=== PATIENT | male | born 1950 | race Caucasian/White ===

== ENCOUNTER 2020-02-04 16:09 | Inpatient (IN) | payer MEDICARE, OTHER ==
[~2020-02-04] VITALS: Ht 165.1 cm; Wt 63.4 kg
[2020-02-04] MEDS ORDERED: MORPHINE SULFATE 4 MG/ML SYR/VIAL IV ONE (16:45)
[2020-02-04] MEDS ORDERED: hydrALAZINE HCL 20 MG/ML VL IV ONE (16:45)
[2020-02-04] MEDS ORDERED: ONDANSETRON HCL 4 MG/2 ML VIAL IV ONE (16:45)
[2020-02-04 16:55] LABS: Eosinophils # (auto) 0 10 ^3/uL (0-0.8); Lymphocytes # (auto) 2.8 10 ^3/uL (0.4-5.4); Neutrophils # (auto) 10.1 10 ^3/uL (1.6-8.6); Nucleated Red Blood Cells % 0.3 %; White Blood Cell 13.5 10^3/uL (4.4-10.8)
[2020-02-04 16:56] LABS: Basophils # (auto) 0 10 ^3/uL (0-0.2); Basophils % (auto) 0.3 % (0.0-2.0); Eosinophils % (auto) 0.1 % (0.0-7.0); Hemoglobin 18.8 g/dL (13.5-17.5); Lymphocytes % (auto) 20.7 % (10.0-50.0); Mean Corpuscular Hemoglobin 29.5 pg (28.0-32.0); Mean Corpuscular Hgb Conc. 29.7 g/dL (32.0-36.0); Mean Corpuscular Volume 99.4 fL (80.0-100.0); Monocytes # (auto) 0.6 10 ^3/uL (0-1.3); Monocytes % (auto) 4.3 % (0.0-12.0); Neutrophils % (auto) 74.6 % (37.0-80.0); Platelet Count (auto) 154 10^3/uL (140-450); Red Blood Cells 6.36 10^6/uL (4.5-5.90)
[2020-02-04 16:58] LABS: Hematocrit 63.3 % (41.0-53.0); Red Cell Distribution Width 20.1 % (11.8-14.3)
[2020-02-04 17:11] LABS: Albumin 3.3 g/dL (3.4-5.0); BUN/Creatinine Ratio 20.5; Calcium 8.4 mg/dL (8.5-10.1); Magnesium 3.1 mg/dL (1.6-2.6)
[2020-02-04 17:16] LABS: Potassium 5.7 mmol/L (3.5-5.1)
[2020-02-04 17:18] LABS: Bilirubin, Total 3.6 mg/dL (0.2-1.0); Total Protein 7.6 g/dL (6.4-8.2)
[2020-02-04 18:00] VITALS: BP 106/74
[2020-02-04] MEDS ORDERED: FUROSEMIDE 40 MG/4 ML VIAL IV ONE (18:15)
[2020-02-04] MEDS ORDERED: LABETALOL HCL 5 MG/ML 4ML SYRINGE IV ONE (18:15)
[2020-02-04] MEDS ORDERED: CALCIUM GLUC 4.65meq/50ml D5AE 50 ML IV ONE (18:15)
[2020-02-04] MEDS ORDERED: CALCIUM CHL 100MG/ML 1,000 MG in D5W 5% 100 ML IV ONE (18:15)
[2020-02-04] MEDS ORDERED: SODIUM CHLORIDE 0.9% 500 ML IV ONE (18:15)
[2020-02-04] MEDS ORDERED: AZITHROMYCIN 500MG/ 250ML 250 ML IV ONE (18:15)
[2020-02-04] MEDS ORDERED: cefTRIAXone 1GM/50ML D5W 50 ML IV ONE (18:15)
[2020-02-04 19:16] LABS: INR 1.71 (0.9-1.15); Partial Thromboplastin Time 30.8 sec (23.64-32.05)
[2020-02-04] MEDS ORDERED: NITROGLYCERIN 0.4 MG SL TAB SL PRN (19:30)
[2020-02-04] MEDS ORDERED: AMIODARONE HCL 150 MG in D5W 5% 100 ML IV ONE (19:30)
[2020-02-04] MEDS ORDERED: MORPHINE SULF INJ 2 MG/ML SYRINGE 1ML IV PRN (19:30)
[2020-02-04] MEDS ORDERED: AMIODARONE 450mg/250ml AE 250 ML IV SCH (19:38)
[2020-02-04 19:43] VITALS: BP 128/78
[2020-02-04] MEDS ORDERED: LACTULOSE 20Gm/30ML SOLN PO PRN (20:30)
[2020-02-04] MEDS ORDERED: ALBUTEROL SULF 2.5 MG/0.5ML(0.5%) NEB SOLN NEB PRN (20:30)
[2020-02-04] MEDS ORDERED: MIDAZOLAM DRIP 50 mg/50mL 50 ML IV ONE (20:31)
[2020-02-04] MEDS ORDERED: InsuLIN REG 1unit/0.01ml Soln (100units/ml) IV ONE (20:45)
[2020-02-04] MEDS ORDERED: SODIUM ZIRCONIUM CYCL 10 GM PAK PO ONE (20:45)
[2020-02-04] MEDS ORDERED: SODIUM BICARBONATE 8.4% INJ 50ML SYRINGE IV ONE (20:45)
[2020-02-04] MEDS ORDERED: DEXTROSE (50%) 50ML SYRG IV ONE (20:45)
[2020-02-04] MEDS ORDERED: CLOPIDOGREL BISULFATE 75 MG TAB PO ONE (21:00)
[2020-02-04 22:00] VITALS: BP 121/72
[2020-02-04] MEDS ORDERED: ATORVASTATIN 20 MG TAB PO SCH (22:00)
[2020-02-04] MEDS: MIDAZOLAM DRIP 50 mg/50mL 50 ML IV SCH (23:04)
[2020-02-04] MEDS: methylPREDNISolone SOD SUCC 40 MG/ML VL IV SCH (23:08)
[2020-02-04] MEDS: FUROSEMIDE 40 MG/4 ML VIAL IV SCH (23:09)
[2020-02-04] MEDS: SODIUM CHLOR 0.9% PF (SALINE LOCK) 10ML VIAL/SYR IV SCH (23:10)
[2020-02-04] MEDS: ENOXAPARIN SOD 80 MG/0.8ML SYRINGE SC SCH (23:11)
[2020-02-04 23:27] LABS: BUN/Creatinine Ratio 27.5; Calcium 8.9 mg/dL (8.5-10.1)
[2020-02-04 23:33] LABS: Potassium 4.9 mmol/L (3.5-5.1)
[2020-02-05] VITALS (13 sets, daily range): BP systolic 88–129; BP diastolic 63–100
[2020-02-05] MEDS ORDERED: AMIODARONE 450mg/250ml AE 250 ML IV SCH ×3 (01:38→17:54)
[2020-02-05] MEDS: SODIUM CHLOR 0.9% PF (SALINE LOCK) 10ML VIAL/SYR IV SCH ×3 (06:00→22:00)
[2020-02-05 07:12] LABS: Hematocrit 44.5 % (41.0-53.0); Hemoglobin 14.3 g/dL (13.5-17.5); Mean Corpuscular Hgb Conc. 32.2 g/dL (32.0-36.0); Mean Corpuscular Volume 93.2 fL (80.0-100.0); Platelet Count (auto) 120 10^3/uL (140-450); Red Blood Cells 4.78 10^6/uL (4.5-5.90); Red Cell Distribution Width 18.7 % (11.8-14.3)
[2020-02-05 07:27] LABS: Basophils % (manual) 0 (0.0-2.0); Blast Cells 0; Eosinophils % (manual) 0 (0-7); Metamyelocytes % 0; Myelocytes % 0; Promyelocytes % 0; Reactive Lymphocytes 0
[2020-02-05 07:29] LABS: Potassium 4.6 mmol/L (3.5-5.1)
[2020-02-05 07:36] LABS: Band Neutrophils % (manual) 2; Lymphocytes % (manual) 8 (10.0-50.0); Monocytes % (manual) 3 (0-12)
[2020-02-05 07:53] LABS: Albumin 2.9 g/dL (3.4-5.0); BUN/Creatinine Ratio 29.7; Bilirubin, Total 2.8 mg/dL (0.2-1.0); Calcium 9.3 mg/dL (8.5-10.1); Total Protein 5.8 g/dL (6.4-8.2)
[2020-02-05] MEDS ORDERED: fentaNYL Drip 2500mCg/250mlNS 250 ML IV ONE (08:53)
[2020-02-05] MEDS ORDERED: NOREPINEPHRINE 8 MG/250ML KIT 250 ML IV ONE (08:53)
[2020-02-05] MEDS: fentaNYL Drip 2500mCg/250mlNS 250 ML IV SCH (09:05)
[2020-02-05] MEDS: NOREPINEPHRINE 8 MG/250ML KIT 250 ML IV SCH (09:06)
[2020-02-05] MEDS: MIDAZOLAM DRIP 50 mg/50mL 50 ML IV SCH ×2 (09:07→12:06)
[2020-02-05] MEDS: levoFLOXacin 500MG 100 ML IV SCH (09:34)
[2020-02-05] MEDS: FUROSEMIDE 40 MG/4 ML VIAL IV SCH ×2 (09:34→22:00)
[2020-02-05] MEDS: ASPirin 81 mg TAB PO SCH (09:35)
[2020-02-05] MEDS: ENOXAPARIN SOD 80 MG/0.8ML SYRINGE SC SCH ×2 (09:35→22:00)
[2020-02-05] MEDS: CLOPIDOGREL BISULFATE 75 MG TAB PO SCH (09:35)
[2020-02-05] MEDS: methylPREDNISolone SOD SUCC 40 MG/ML VL IV SCH ×2 (09:35→22:00)
[2020-02-05] MEDS ORDERED: ASPirin 81 mg TAB PO SCH (10:00)
[2020-02-05] MEDS ORDERED: dilTIAZem 25 MG/5 ML VIAL IV ONE (11:30)
[2020-02-05] MEDS ORDERED: EPINEPHrine HCL 1 MG/10 ML SYRG IV ONE (12:35)
[2020-02-05] MEDS ORDERED: CALCIUM CHLOR(10%) 100MG/ML 10ML SYRINGE IV ONE (12:35)
[2020-02-05] MEDS ORDERED: SODIUM BICARBONATE 8.4% INJ 50ML SYRINGE IV ONE (12:35)
[2020-02-05] MEDS ORDERED: AMIODARONE HCL 150 MG in D5W 5% 100 ML IV ONE (12:45)
[2020-02-05] MEDS ORDERED: DIGOXIN (250MCG/ML) 2 ML AMPULE IV ONE ×2 (12:45→13:00)
[2020-02-06] VITALS (57 sets, daily range): BP systolic 83–134; BP diastolic 54–97
[2020-02-06] MEDS: NOREPINEPHRINE 8 MG/250ML KIT 250 ML IV SCH (01:15)
[2020-02-06] MEDS ORDERED: ACETAMINOPHEN 650 mg PER 20 mL UD PO PRN (03:00)
[2020-02-06] MEDS: MIDAZOLAM DRIP 50 mg/50mL 50 ML IV SCH (03:25)
[2020-02-06] MEDS ORDERED: SODIUM CHLORIDE 0.9% 1,000 ML IV SCH (04:00)
[2020-02-06 05:33] LABS: Basophils # (auto) 0 10 ^3/uL (0-0.2); Basophils % (auto) 0.3 % (0.0-2.0); Eosinophils # (auto) 0 10 ^3/uL (0-0.8); Hematocrit 43.2 % (41.0-53.0); Hemoglobin 13.9 g/dL (13.5-17.5); Lymphocytes # (auto) 0.7 10 ^3/uL (0.4-5.4); Lymphocytes % (auto) 4.5 % (10.0-50.0); Mean Corpuscular Hemoglobin 29.6 pg (28.0-32.0); Mean Corpuscular Hgb Conc. 32.1 g/dL (32.0-36.0); Mean Corpuscular Volume 92.2 fL (80.0-100.0); Monocytes # (auto) 0.4 10 ^3/uL (0-1.3); Monocytes % (auto) 2.8 % (0.0-12.0); Neutrophils # (auto) 14.6 10 ^3/uL (1.6-8.6); Neutrophils % (auto) 92.4 % (37.0-80.0); Nucleated Red Blood Cells % 0.6 %; Platelet Count (auto) 101 10^3/uL (140-450); Red Blood Cells 4.68 10^6/uL (4.5-5.90); White Blood Cell 15.8 10^3/uL (4.4-10.8)
[2020-02-06] MEDS: SODIUM CHLOR 0.9% PF (SALINE LOCK) 10ML VIAL/SYR IV SCH ×3 (05:50→21:43)
[2020-02-06 05:51] LABS: INR 1.42 (0.9-1.15); Partial Thromboplastin Time 43.7 sec (23.64-32.05)
[2020-02-06 05:59] LABS: Calcium 8.2 mg/dL (8.5-10.1); Magnesium 2.4 mg/dL (1.6-2.6); Potassium 4.6 mmol/L (3.5-5.1)
[2020-02-06 06:08] LABS: Albumin 2.7 g/dL (3.4-5.0); BUN/Creatinine Ratio 30.2; Total Protein 5.1 g/dL (6.4-8.2)
--- NOTE | 2020-02-06 06:25 | NUR ---
Respiratory note: RECEIVED PATIENT ON V14 ESPRIT VENT ORALLY INTUBATED WITH A 7.5 ETT SECURED VIA JESSI AT THE 23CM MARKING AT THE LIP, AND MECHANICALLY VENTILATED WITH THE CHARTED SETTINGS. SPO2 99%, LUNG SOUNDS COARSE/RHONCHI T/O, MODERATE AMOUNT OF THICK RED/BLOOD TINGED SECRETIONS WHEN SUCTIONED. SKIN IS WARM/DRY TO THE TOUCH AND IS INTACT NEAR JESSI SITE. THERE IS AN OGT IN PLACE AND SECURED TO THE ETT, A TRIPLE LUMEN CENTRAL LINE IS PLACED IN THE RIGHT IJ, PITTING EDEMA NOTED IN BILATERAL UPPER AND LOWER EXTREMITIES. NO NEW AM CXR TO ASSESS. PATIENT IS UNRESPONSIVE TO VERBAL STIMULI, BUT DOES SHOW RESPONSE TO TACTILE STIMULI, AND IS SEDATED ON VERSED AND FENTANYL DRIPS. HE IS RESTING COMFORTABLY AND TOLERATING VENT WELL, NO CHANGES MADE. VENT PLUGGED INTO RED OUTLET AND ALL ALARMS ARE SET AND AUDIBLE. WILL CONTINUE TO ASSESS PATIENT WELL VENTILATOR FUNCTION. PRN MED-NEB NOT INDICATED AT THIS TIME.
--- NOTE | 2020-02-06 06:38 | NUR ---
Respiratory note: FIO2 INCREASED TO 40% AT THIS TIME FOR LOW PO2 ON ABG. RN HERB MADE AWARE OF CHANGE.
[2020-02-06] MEDS: levoFLOXacin 500MG 100 ML IV SCH (09:44)
[2020-02-06] MEDS: FUROSEMIDE 40 MG/4 ML VIAL IV SCH (09:44)
[2020-02-06] MEDS: methylPREDNISolone SOD SUCC 40 MG/ML VL IV SCH ×2 (09:44→22:01)
[2020-02-06] MEDS: ENOXAPARIN SOD 80 MG/0.8ML SYRINGE SC SCH ×2 (09:44→22:02)
[2020-02-06] MEDS: ASPirin 81 mg TAB PO SCH (09:44)
[2020-02-06] MEDS: CLOPIDOGREL BISULFATE 75 MG TAB PO SCH (09:44)
--- NOTE | 2020-02-06 09:56 | NUR ---
Respiratory note: FIO2 DECREASED TO 35% AT THIS TIME, ERICK REYES MADE AWARE OF CHANGE.
[2020-02-06] MEDS: SODIUM CHLORIDE 0.9% 1,000 ML IV SCH (12:15)
--- NOTE | 2020-02-06 12:30 | NUR ---
Admit to ICU from ER on [facility] ANNA PAYNE admitted to ICU via gurney on telemetry monitor, intubated and being bagged by Respiratory Therapist. Patient transferred to bed, connected to mechanical ventilator by therapist, RUTH at bedside. Patient connected to ICU monitoring, weighed by bed scale, oriented to REE CERVANTES RN primary RN, unit, ventilator and sedation.
--- NOTE | 2020-02-06 12:35 | NUR ---
RT Transport Note: Patient transported to ICU with ERICK BAUMAN. Patient on time lock expert with alarms set and audible, ambu-bag/mask connected to 02 tank. Patient placed velasquez on vent with all previously ordered settings. transport completed without incident.
[2020-02-06] MEDS: fentaNYL Drip 2500mCg/250mlNS 250 ML IV SCH (13:24)
[2020-02-06 14:03] LABS: Barbiturate Scree,Urine NEGATIVE (NEGATIVE); Protein, Urine 34.6 mg/dL (0.0-11.9); Sodium Urine 36 mmol/L (40-220)
[2020-02-06 14:11] LABS: Amphetamine Screen, Urine NEGATIVE (NEGATIVE); Benzodiazephine Screen, Urine POSITIVE (NEGATIVE); Cannabinoid Screen, Urine POSITIVE (NEGATIVE); Cocaine Screen, Urine NEGATIVE (NEGATIVE); Creatinine, Urine 76 mg/dL (30.0-125.0); Opiate Scree,Urine NEGATIVE (NEGATIVE); Phencyclidine Screen, Urine NEGATIVE (NEGATIVE)
[2020-02-06 14:13] LABS: Alcohol, Urine < 3.0 mg/dL (0-10)
[2020-02-06 14:44] LABS: Urine Amorphous Crystal FEW /hpf (None Seen); Urine Bacteria FEW /hpf (None Seen); Urine Blood 2+ /uL (Negative); Urine Hyaline Cast MANY /lpf (0 - 2); Urine Mucus FEW (None Seen); Urine Specific Gravity 1.015 (1.001-1.035); Urine WBC 9 /hpf (0 - 3); Urine WBC Clumps PRESENT /hpf (None Seen)
--- NOTE | 2020-02-06 15:10 | NUR ---
THIS RN IS UNABLE TO COMPLETE Admission IN IT'S ENTIRETY DUE TO PATIENT BEING INTUBATED AND SEDATED. SPOKE TO PATIENTS SISTER KOMAL WHO IS PATIENTS POA. COPY OF PAPER WORK IS IN PATIENTS CHART. SISTER IS UNABLE TO ANSWER SOME QUESTIONS ABOUT PATIENTS HEALTH.
[2020-02-06] MEDS: BUMETANIDE INJECTION 12.5 MG in GIVE UN-DILUTED 0 ML IV SCH (15:41)
[2020-02-06] MEDS ORDERED: DOBUTamine 1000MCG/ML 250 ML IV SCH (17:24)
[2020-02-06] MEDS ORDERED: chlordiazePOXIDE HCL 25 MG CAP PO PRN (17:30)
--- NOTE | 2020-02-06 19:30 | NUR ---
OPEN NOTES ASSUMED CARE OF PATIENT. PATIENT SEDATED WITH IV VERSED AND FENTANYL. BREATHING COMFORTABLY WITH THE VENTILATOR. HR 54-60/MIN, BP STABLE. RIGHT IJ TLC DRESSING WITH SOME BLOOD NOTED BUT NOT ACTIVELY BLEEDING. TEMP 97.2 F RECTALLY - COVERED WITH WARM BLANKETS ALL LIMBS PUFFY, UPPER LIMBS NOTED WITH ECCHYMOSIS FULL ASSESSMENT DONE -REFER INTERVENTIONS WILL CONTINUE TO MONITOR
[2020-02-06] MEDS: DexMEDEtomidine 400 MCG in D5W 5% 96 ML IV SCH (19:37)
[2020-02-06] MEDS: DOPamine 1600MCG/ML D5W 250 ML IV SCH (19:39)
--- NOTE | 2020-02-06 20:47 | NUR ---
BP LOW SBP 83-88 MMHG, MAP 64 MMHG X 3 READINGS IV LEVOPHED RE-STARTED AT 2MCG/MIN
--- NOTE | 2020-02-06 21:15 | NUR ---
PATIENT STARTED SHAKING WHEN SEDATION VACATION DONE Addendum: 02/06/20 at 2115 by Sofi Roque RN Amended: Links added.
--- NOTE | 2020-02-06 23:15 | NUR ---
Levophed off SBP 110-120 mmHg
[2020-02-07] VITALS (101 sets, daily range): BP systolic 87–117; BP diastolic 56–79
[2020-02-07] MEDS: BUMETANIDE INJECTION 12.5 MG in GIVE UN-DILUTED 0 ML IV SCH ×2 (00:50→23:00)
[2020-02-07] MEDS: SODIUM CHLORIDE 0.9% 1,000 ML IV SCH (03:07)
--- NOTE | 2020-02-07 03:30 | NUR ---
HYGIENE PATIENT CLEANED WITH CHG WIPES. PARTIAL LINEN CHANGE DONE REPOSITIONED ORAL CARE DONE
[2020-02-07 04:25] LABS: Basophils # (auto) 0 10 ^3/uL (0-0.2); Basophils % (auto) 0.2 % (0.0-2.0); Eosinophils # (auto) 0 10 ^3/uL (0-0.8); Hematocrit 40.1 % (41.0-53.0); Hemoglobin 12.7 g/dL (13.5-17.5); Lymphocytes # (auto) 0.5 10 ^3/uL (0.4-5.4); Lymphocytes % (auto) 4.3 % (10.0-50.0); Mean Corpuscular Hemoglobin 29.2 pg (28.0-32.0); Mean Corpuscular Hgb Conc. 31.7 g/dL (32.0-36.0); Monocytes # (auto) 0.4 10 ^3/uL (0-1.3); Monocytes % (auto) 3.2 % (0.0-12.0); Neutrophils # (auto) 10.9 10 ^3/uL (1.6-8.6); Neutrophils % (auto) 92.3 % (37.0-80.0); Platelet Count (auto) 84 10^3/uL (140-450); Red Blood Cells 4.36 10^6/uL (4.5-5.90); Red Cell Distribution Width 18.7 % (11.8-14.3); White Blood Cell 11.8 10^3/uL (4.4-10.8)
[2020-02-07 04:48] LABS: Potassium 4.1 mmol/L (3.5-5.1)
[2020-02-07 04:54] LABS: Albumin 2.2 g/dL (3.4-5.0); BUN/Creatinine Ratio 34.5; Calcium 7.7 mg/dL (8.5-10.1); Magnesium 2.5 mg/dL (1.6-2.6)
[2020-02-07 05:09] LABS: Bilirubin, Total 2.4 mg/dL (0.2-1.0); Total Protein 4.8 g/dL (6.4-8.2)
[2020-02-07] MEDS: SODIUM CHLOR 0.9% PF (SALINE LOCK) 10ML VIAL/SYR IV SCH ×3 (06:09→22:00)
--- NOTE | 2020-02-07 07:32 | NUR ---
REPORT REPORT GIVEN TO ERICK CARDONA
[2020-02-07] MEDS: NOREPINEPHRINE 8 MG/250ML KIT 250 ML IV SCH (08:50)
[2020-02-07] MEDS: fentaNYL Drip 2500mCg/250mlNS 250 ML IV SCH ×2 (08:50→14:21)
[2020-02-07] MEDS: ENOXAPARIN SOD 80 MG/0.8ML SYRINGE SC SCH ×2 (10:07→22:00)
[2020-02-07] MEDS: CLOPIDOGREL BISULFATE 75 MG TAB PO SCH (10:07)
[2020-02-07] MEDS: levoFLOXacin 500MG 100 ML IV SCH (10:07)
[2020-02-07] MEDS: ASPirin 81 mg TAB PO SCH (10:07)
[2020-02-07] MEDS: methylPREDNISolone SOD SUCC 40 MG/ML VL IV SCH ×2 (10:08→22:00)
--- NOTE | 2020-02-07 10:12 | NUR ---
assessment Patient is a 69 year old male who is on a vent. Per patients sister Valeria and GUILLERMINA prior to admission patient lived home alone and cared for himself as far as cooking and dressing himself. Valeria drives him to the doctor, buys his food, and cleans his house for him. Patients PCP is Dr Amos. Patient has a fww, cane, and oxygen at home. Per Valeria patients friend called 911 due to patient having shortness of breath. Per Valeria patient may benefit from home health or SNF on discharge. I informed Valeria I will continue to monitor and follow up as appropriate. I informed Valeria patients post discharge needs to be determined after extubation and prior to discharge. Valeria verbalized understanding. Addendum: 02/07/20 at 1020 by Yasmine WEINER Amended: Links added.
--- NOTE | 2020-02-07 10:37 | NUR ---
DR. RODRIGUEZ AT BEDSIDE
--- NOTE | 2020-02-07 10:38 | NUR ---
PATIENT TAKEN TO CT VIA ACLS GUIDELINES
--- NOTE | 2020-02-07 10:40 | NUR ---
RT Transport Note: Patient transported to CT with ERICK SIFUENTES. Patient transported to and from procedure on ventilator with previous ordered settings. Patient on nurse monitoring with alarms set and audible, ambu-bag/mask connected to 02 tank. Patient returned to room with no adverse reaction noted. Transport completed without incident.
--- NOTE | 2020-02-07 11:05 | NUR ---
PATIENT BACK FROM CT PLACED ON ALL APPROPRIATE MONITORS
--- NOTE | 2020-02-07 11:10 | NUR ---
COMPLETE LINEN CHANGE PERFORMED. PATIENT TOLERATED WELL
--- NOTE | 2020-02-07 11:21 | NUR ---
DR. JORGE AT BEDSIDE
--- NOTE | 2020-02-07 11:55 | NUR ---
WOUND CARE NOTE: PATIENT ADDED TO SKIN INTEGRITY MONITORING AT THIS TIME, D/T INTUBATION STATUS. PATIENT RECENTLTY ADMITTED TO [facility] WITH DIAGNOSIS OF ACUTE PA, HEART FAILURE, TACHYCARDIA, S/P CPR. PATIENT IS INTUBATED, SEDATED. CURRENT NARA SCORE IS 11. PATIENT RECEIVED A CONTACT BURN TO THE CHEST FOLLOWING CPR. SKIN IS DARK RED, SKIN INTACT. LEFT OPEN TO AIR. PATIENT ALSO HAS MULTIPLE SMALL SCARS AND SCABBED ABRASIONS TO THE RIGHT LOWER LEG. LEFT OPEN TO AIR. WOUND PHOTOS WERE TAKEN UPON ADMIT BY BEDSIDE NURSE FOR REFERENCE. SKIN/WOUND CARE PLAN IMPLEMENTED. RECOMMEND: FREQUENT TURN SCHEDULE, Q 2 HOURS PRN CONDITION PERMITS, WITH PRESSURE REDISTRIBUTION USING PILLOWS/WEDGES, BID/PRN APPLICATION MOISTURE BARRIER CREAM, OPTIFOAM GENTLE SACRAL DRESSING DIETARY CONSULT FOR LOW NARA, SKIN/WOUND CARE PLAN, CONTINUED MONITORING BY WOUND CARE TEAM. Addendum: 02/07/20 at 1520 by Elise Liang RN Amended: Links added.
[2020-02-07] MEDS: MIDAZOLAM DRIP 50 mg/50mL 50 ML IV SCH (13:54)
--- NOTE | 2020-02-07 14:13 | NUR ---
[facility] SPUTUM DR. JORGE PAGED TO NOTIFY OF MRSA FOUND IN SPUTUM. AWAITING CALLBACK
--- NOTE | 2020-02-07 14:22 | NUR ---
DR. JORGE CALLBACK ORDERS RECEIVED
[2020-02-07] MEDS ORDERED: VANCOMYCIN 1GM/250ML 250 ML IV ONE ×2 (14:25→14:30)
[2020-02-07] MEDS ORDERED: VANCOMYCIN PER PHARMACY 0 MG IV SCH (14:30)
[2020-02-07] MEDS: DOPamine 1600MCG/ML D5W 250 ML IV SCH (14:45)
--- NOTE | 2020-02-07 15:31 | NUR ---
Nutrition Assessment Notes Please refer to link for full assessment notes. Est Energy needs: 5426-8962 kcals (30-35 kcal/kgBW) d/t pt with Stg 3 CKD Est Protein needs: 44-65 gms/day (0.6-0.75 gm/kgBW) d/t pt with Stg 3 CKD Will continue to monitor and reassess prn. Addendum: 02/07/20 at [address] Amended: Links added.
[2020-02-07] MEDS: DexMEDEtomidine 400 MCG in D5W 5% 96 ML IV SCH (17:24)
--- NOTE | 2020-02-07 18:19 | NUR ---
Respiratory note: RECEIVED PT ON VENT V4, VENT CONNECTED TO RED OUTLET AND O2 SOURCE. ALARMS ARE SET AND AUDIBLE, AMBU BAG AND MASK AT BEDSIDE. BS ARE COURSE SXD VIA ETT FOR MODERATE THICK BROWN SECRETIONS. CURRENT TEMP READS 98.8F. WITH ANY STIMULATION PT BEGINS TO HAVE TREMORS. WILL CONTINUE TO MONITOR.
[2020-02-07] MEDS ORDERED: POTA10TA51 PO (18:22)
[2020-02-07] MEDS ORDERED: AMLO5TAB15 PO (18:22)
[2020-02-07] MEDS ORDERED: PRED20TA2 PO (18:22)
[2020-02-07] MEDS ORDERED: FURO1TAB31 PO (18:22)
[2020-02-07] MEDS ORDERED: APIX5TAB PO (18:22)
[2020-02-07] MEDS ORDERED: METH2.5T PO (18:22)
[2020-02-07] MEDS ORDERED: FOLI1TAB6 PO (18:22)
[2020-02-07] MEDS ORDERED: CARV3.1240 PO (18:22)
[2020-02-07] MEDS ORDERED: ATOR20TA PO (18:22)
--- NOTE | 2020-02-07 19:49 | NUR ---
ADMITTED ON 02/04/2020 WITH DYSPNEA, HYPOTENSION, SVT AND CODE BLUE. DNR TODAY. ETT TO VENTILATOR. AC OF 14. SEDATION: VERSED 5 MG. ON BUMEX DRIP 0.5 IV DRIP. ECHOCARDIOGRAM: LOW EF. NUTRITION: NPO. OGT CLAMPED. SKIN: CONTRACT BURN FROM CPR PADS. DR RAHMAN CALLED IN TODAY. STAT CT OF HEAD ORDERED. EEG PENDING. NEGATIVE INFLUENZA, NEGATIVE STREP, NEGATIVE COVID.
--- NOTE | 2020-02-07 20:05 | NUR ---
Respiratory note: ROUTINE VENT CHECK. SANDRA WATER CHANGED, PLACED, SECURED AND MARCUS HEATER TUBING IS UNCLAMPED. NO OTHER CHANGES MADE WILL CONTINUE TO MONITOR. CURRENT BODY TEMP READS 99.0F.
--- NOTE | 2020-02-07 22:00 | NUR ---
REPOSITIONED TO BACK. ORAL CARE. SMALL AMOUNT OF BLOOD STREAKS MIXED WITH CLEAR SECRETIONS. RUST SUCTIONED FROM THE ETT. ABDOMEN SOFT. NO NGT RESIDUAL. URINE OUTPUT ADEQUATE. CONTINUES ON BUMEX AND VERSED DRIP. GRIMACES. LIGHT COUGH AND GAG.
--- NOTE | 2020-02-07 23:00 | NUR ---
PLACED ON PORTABLE MONITOR WITH DEFIB CAPABILITIES. RT HERE TO BAG PATIENT. LEAVING BEDSIDE TO GO TO CT SCAN. PROCEDURE: CT SCAN OF THE HEAD. NSR WITHOUT ECTOPY.
--- NOTE | 2020-02-07 23:25 | NUR ---
RETURNED FROM CT SCAN. PLACED BACK ON BEDSIDE MONITOR AND RT RETURNED THE PATIENT TO THE VENTILATOR. VSS. NEW BUMEX DRIP HUNG. PATIENT OPENS EYES, GRIMACES. DOES NOT FOLLOW COMMANDS.
[2020-02-08] VITALS (91 sets, daily range): BP systolic 88–132; BP diastolic 58–88
--- NOTE | 2020-02-08 | NUR ---
REPOSITIONED. SUCTIONED THE ORAL CAVITY FOR A SMALL AMOUNT OF RUST SECRETIONS. NO RESIDUAL FROM THE NGT. ORAL CARE DONE. HEELS OFF BED. SISTER CALLED AND SPOKE OF TERMINAL WEAN.
--- NOTE | 2020-02-08 02:00 | NUR ---
RT SUCTIONED THE ETT JUST BEFORE ME. ORAL CARE DONE. RIJ TLC DRESSING CHANGED. SITE HAD BLOOD AT THE SITE. AREA CLEANED WITH BETADINE AND ALCOHOL. BIOPATCH APPLIED AND CLEAR DRESSING TO COVER. SINUS BRADYCARDIA WITH A BRIEF SELF LIMITING RUN OF SVT. DOES HAVE SHORT RUNS OF INCREASED HEART RATE THAT IS SINUS, BUT IT IS SELF LIMITING. LUNGS CLEAR. PULSES WEAK. ALL EXTREMITIES ARE CONSISTENTLY WARM. SCDS ON. GOOD URINE OUT PUT. THE BRIZUELA HAS SEDIMENT LINING THE TUBING, BUT WHAT IS IN THE CONTAINER IS CLEAR.
[2020-02-08] MEDS: MIDAZOLAM DRIP 50 mg/50mL 50 ML IV SCH ×2 (03:00→13:38)
--- NOTE | 2020-02-08 04:00 | NUR ---
AM LABS DRAWN
[2020-02-08 05:29] LABS: Albumin 2.3 g/dL (3.4-5.0); Potassium 3.4 mmol/L (3.5-5.1)
--- NOTE | 2020-02-08 05:30 | NUR ---
SPOKE WITH SISTER, ONCE AGAIN SHE STATED THAT SHE WILL CALL THE DOCTOR AND MAKE A DECISION CONCERNING TERMINAL WEAN.
[2020-02-08 05:38] LABS: BUN/Creatinine Ratio 39.9; Bilirubin, Total 2.5 mg/dL (0.2-1.0); Total Protein 5.2 g/dL (6.4-8.2)
[2020-02-08] MEDS: SODIUM CHLOR 0.9% PF (SALINE LOCK) 10ML VIAL/SYR IV SCH ×3 (06:00→22:00)
--- NOTE | 2020-02-08 06:00 | NUR ---
SINUS NAEL 57, NO ECTOPY. BONILLA SECRETIONS FROM ETT. ORAL CARE DONE. ADEQUATE URINE OUTPUT. SISTER CALLED. SHE IS DISCUSSING TERMINAL WEAN. HER PLAN IS TO CONTACT THE DOCTOR TODAY AND MAKE A DECISION.
--- NOTE | 2020-02-08 07:55 | NUR ---
SHAKING/ DESATURATION/ CEREBRAL EDEMA PT'S SPO2 WAS GOING DOWN TO THE 60'S I WENT IN ROOM TO ASSESS PT. PT WAS SHAKING SUBTLE ALL AVER HIS BODY, PUPILS FULLY DILATED WITH A SLUGGISH REACTION TO LIGHT, FEET WERE POSTURING INWARD. PT HAS THE SHAKING FOR APPROXIMATELY FIVE MINUTES FROM BEGINNING TO END. I NOTIFIED DR. RAHMAN PT'S NEUROLOGIST WHOM HAPPEN TO ASSESS PT ABOUT 5 MIN. BEFORE EVENT HAPPENED. MD WAS REVIEWING PT'S CAT'S SCAN AND ITS CORRELATING FINDINGS WITH CEREBRAL EDEMA. PT'S SISTER HAD MADE PT. DNR AND IS PLANNING ON DOING A TERMINAL WEAN FROM VENTILATOR TODAY. I NOTIFIED DR. RAHMAN OF PT'S SISTER'S PLAN. NO NEW ORDERS RECEIVED.
--- NOTE | 2020-02-08 08:00 | NUR ---
AM ASSESSMENT DONE. PT REMAINS INTUBATED, SEDATED ON VERSED AT 5 MG/HR PT HAVING SHAKES. PT S/P CPR. PT DX WITH SEPSIS AND NSTEMI, PT HAS ANOXIC ENCEPHALOPATHY. PT CURRENTLY DNR STATUS PT'S SISTER KOMAL IS CONTEMPLATING A TERMINAL WEAN FROM VENTILATOR D/T PT'S EXTENSIVE MEDICAL HISTORY AND PT'S DPOA. PT DID NOT WANTED TO PROLONG HIS LIFE PER REPORT RECEIVED BY FOOTWEAR MACHINERY INSTRUCTOR RN. ORAL CARE RENDERED PT VERY FRAIL TO ANY ACTIVITY, PT SHAKES AND SPO2 DROPS WITH ANY STIMULATION. THE PLAN FOR THE DAY WILL BE TO KEEP STIMULATION TO A MINIMUM.
[2020-02-08] MEDS: NOREPINEPHRINE 8 MG/250ML KIT 250 ML IV SCH (08:50)
[2020-02-08] MEDS: fentaNYL Drip 2500mCg/250mlNS 250 ML IV SCH (08:50)
--- NOTE | 2020-02-08 09:05 | NUR ---
PT HAD ANOTHER EPISODE OF CONSTANT SHAKING, THIS TIME. VERSED HAD TO BE INCREASED TO 8 MG/HR. WITNESSES 5 MIN OF CONTINUES SHAKING AND POSTURING. SPO2 DROPPED TO 48%. PT FIO2 INCREASED TO 100% DURING EVENT. PT WAS MEDICATED WITH 2 MG OF VERSED IVP IMMEDIATELY TO STOP SEIZURE.
[2020-02-08] MEDS: DOPamine 1600MCG/ML D5W 250 ML IV SCH (09:51)
--- NOTE | 2020-02-08 10:50 | NUR ---
DR. MEDRANO ROUNDING ON PT. PT'S SISTER KOMAL ON THE PHONE WANTING TO DO A TERMINAL WEAN ON PT TOMORROW. PT ALREADY DNR.
[2020-02-08] MEDS ORDERED: VANCOMYCIN 1GM/250ML 250 ML IV ONE (12:15)
[2020-02-08] MEDS: ENOXAPARIN SOD 80 MG/0.8ML SYRINGE SC SCH ×2 (12:46→22:00)
[2020-02-08] MEDS: CLOPIDOGREL BISULFATE 75 MG TAB PO SCH (12:46)
[2020-02-08] MEDS: methylPREDNISolone SOD SUCC 40 MG/ML VL IV SCH ×2 (12:46→22:00)
[2020-02-08] MEDS: levoFLOXacin 500MG 100 ML IV SCH (12:47)
[2020-02-08] MEDS: ASPirin 81 mg TAB PO SCH (13:35)
--- NOTE | 2020-02-08 13:43 | NUR ---
DR. RICHEY ROUNDING ON PT I UPDATED MD ON PT'S SISTER'S DECISION ON TERMINAL WEAN TOMORROW AT 11 AM. STATES PT " MIGHT SURVIVE" I TOLD HIM THAT PT'S SISTER IS WELL AWARE OF THAT, THAT THE OUTCOME IS UNPREDICTABLE.
--- NOTE | 2020-02-08 13:46 | NUR ---
EEG BEING DONE AT THIS TIME PER NEUROLOGIST REQUEST.
--- NOTE | 2020-02-08 14:16 | NUR ---
ELECTROENCEPHALOGRAM COMPLETED AT BEDSIDE. PRIMARY RN TAMMY AWARE.
--- NOTE | 2020-02-08 16:51 | NUR ---
ABNORMAL SPO2'S IN VITAL IS WHEN PT IS HAVING TREMORS. PT'S SPO2 DROPS WHEN STIMULATED, WITH ORAL CARE OR ANY ACTIVITY. PT NOT BEING REPOSITIONED FOR THAT REASON. SUCTIONING KEPT TO A MINIMAL. HOB MAINTAINED A 30 DEGREES ANGLE. PT'S ROOM KEPT QUIET POSSIBLE.
[2020-02-08] MEDS: DexMEDEtomidine 400 MCG in D5W 5% 96 ML IV SCH (17:24)
[2020-02-08] MEDS: BUMETANIDE 2.5mg/10ml (0.25 mg/ml) INJ IV SCH (18:38)
--- NOTE | 2020-02-08 19:26 | NUR ---
RT NOTE RECEIVED PT INTUBATED AND ON VENT V14 ON STATED SETTINGS. VENT IS PLUGGED TO RED OUTLET. ALARMS ARE ON AND AUDIBLE TO NURSING. AMBU BAG AT BEDSIDE AND CONNECTED TO O2 SOURCE. 7.5 ETT SECURED WITH ANCHORFAST AT 23 CM TO THE ORAL CENTER. BS ARE CLEAR/DIMINISHED. PT WAS SUCTIONED FOR SMALL RETURN FROM ETT AND ORALLY. CONT ORDERED. POX 99, PT TEMP 97.2 Addendum: 02/08/20 at 1933 by Mindy Kramer RT Amended: Links added.
--- NOTE | 2020-02-08 19:30 | NUR ---
REPORT GIVEN TO DRY SANDER ERICK VALLE.
[2020-02-08] MEDS ORDERED: HYOSCYAMINE SULF 0.125 MG ODT TAB PO PRN (20:00)
--- NOTE | 2020-02-08 20:27 | NUR ---
RT NOTE ROUTINE VENT CHECK DONE. PT INTUBATED AND ON VENT V14 ON STATED SETTINGS WITH HEATED WIRE CIRCUIT. VENT IS PLUGGED TO RED OUTLET. ALARMS ARE ON AND AUDIBLE TO NURSING. AMBU BAG AT BEDSIDE AND CONNECTED TO O2 SOURCE. 7.5 ETT SECURED WITH ANCHORFAST AT 23 CM TO THE ORAL CENTER. WATER LEVEL IS ADEQUATE. CONT ORDERED. POX 98%, PT TEMP 97.2 Addendum: 02/08/20 at 2026 by Mindy Kramer RT Amended: Links added.
--- NOTE | 2020-02-08 22:17 | NUR ---
RT NOTE ROUTINE VENT CHECK DONE. PT INTUBATED AND ON VENT V14 ON STATED SETTINGS WITH HEATED WIRE CIRCUIT. VENT IS PLUGGED TO RED OUTLET. ALARMS ARE ON AND AUDIBLE TO NURSING. AMBU BAG AT BEDSIDE AND CONNECTED TO O2 SOURCE. 7.5 ETT SECURED WITH ANCHORFAST AT 23 CM TO THE ORAL CENTER. WATER LEVEL IS ADEQUATE. CONT ORDERED. POX 98%, PT TEMP 97.2 Addendum: 02/08/20 at 2218 by Mindy Kramer RT Amended: Links added.
[2020-02-09] VITALS (52 sets, daily range): BP systolic 91–163; BP diastolic 62–107
--- NOTE | 2020-02-09 00:12 | NUR ---
RT NOTE ROUTINE VENT CHECK DONE. PT INTUBATED AND ON VENT V14 ON STATED SETTINGS WITH HEATED WIRE CIRCUIT. VENT IS PLUGGED TO RED OUTLET. ALARMS ARE ON AND AUDIBLE TO NURSING. AMBU BAG AT BEDSIDE AND CONNECTED TO O2 SOURCE. 7.5 ETT SECURED WITH ANCHORFAST AT 23 CM TO THE ORAL CENTER. WATER LEVEL IS ADEQUATE. CONT ORDERED. POX 100% PT TEMP 96.4 Addendum: 02/09/20 at 0014 by Mindy Kramer RT Amended: Links added.
--- NOTE | 2020-02-09 02:28 | NUR ---
RT NOTE ROUTINE VENT CHECK DONE. PT INTUBATED AND ON VENT V14 ON STATED SETTINGS WITH HEATED WIRE CIRCUIT. VENT IS PLUGGED TO RED OUTLET. ALARMS ARE ON AND AUDIBLE TO NURSING. AMBU BAG AT BEDSIDE AND CONNECTED TO O2 SOURCE. 7.5 ETT SECURED WITH ANCHORFAST AT 23 CM TO THE ORAL CENTER. WATER LEVEL IS ADEQUATE. INLINE SUCTION CHANGED WITHOUT INCIDENT. CONT ORDERED. POX 98%, PT TEMP 97.2 Addendum: 02/09/20 at 0234 by Mindy Kramer RT Amended: Links added.
--- NOTE | 2020-02-09 04:15 | NUR ---
RT NOTE ROUTINE VENT CHECK DONE. PT INTUBATED AND ON VENT V14 ON STATED SETTINGS WITH HEATED WIRE CIRCUIT. VENT IS PLUGGED TO RED OUTLET. ALARMS ARE ON AND AUDIBLE TO NURSING. AMBU BAG AT BEDSIDE AND CONNECTED TO O2 SOURCE. 7.5 ETT SECURED WITH ANCHORFAST AT 23 CM TO THE ORAL CENTER. WATER LEVEL IS ADEQUATE. CONT ORDERED. POX 93%, PT TEMP 97.0 Addendum: 02/09/20 at 0416 by Mindy Kramer RT Amended: Links added.
[2020-02-09] MEDS: DOPamine 1600MCG/ML D5W 250 ML IV SCH (04:57)
[2020-02-09] MEDS: BUMETANIDE 2.5mg/10ml (0.25 mg/ml) INJ IV SCH (06:00)
[2020-02-09] MEDS: SODIUM CHLOR 0.9% PF (SALINE LOCK) 10ML VIAL/SYR IV SCH ×3 (06:00→22:11)
--- NOTE | 2020-02-09 07:30 | NUR ---
AM ASSESSMENT COMPLETED PT COMPLETELY OFF SEDATION, NON- RESPONSIVE, PUPILS ARE 4 SLUGGISH RESPONSE TO LIGHT. PT CONTINUES TO HAVE SHAKING ON AND OFF. DR. ROSAS AWARE. PT ON SCHEDULE KERUSLANRA AT 10 AM AND 2200. PT HAS A SCHEDULED TERMINAL WEAN AT 1100 TODAY ONCE PT'S FAMILY IS AVAILABLE.
[2020-02-09] MEDS: fentaNYL Drip 2500mCg/250mlNS 250 ML IV SCH (08:50)
[2020-02-09] MEDS: NOREPINEPHRINE 8 MG/250ML KIT 250 ML IV SCH (08:50)
[2020-02-09] MEDS: ASPirin 81 mg TAB PO SCH (10:00)
[2020-02-09] MEDS: CLOPIDOGREL BISULFATE 75 MG TAB PO SCH (10:00)
[2020-02-09] MEDS: ENOXAPARIN SOD 80 MG/0.8ML SYRINGE SC SCH (10:00)
[2020-02-09] MEDS: levoFLOXacin 500MG 100 ML IV SCH (10:00)
[2020-02-09] MEDS: methylPREDNISolone SOD SUCC 40 MG/ML VL IV SCH (10:00)
--- NOTE | 2020-02-09 10:00 | NUR ---
ALL AM MEDS HELD EXCEPT FOR KEPPRA. PT PENDING TERMINAL WEAN THIS AM. ONLY COMFORT CARE MEDS WILL BE GIVEN. AWAITING FOR PT'S SISTER TO COME IN TO SEE PT. PT ART RISK FOR BLEEDING D/T LOW PLATELETS. NO AM LABS DRAWN.
--- NOTE | 2020-02-09 10:45 | NUR ---
PT'S SISTER CALLED , SATING THAT THEY ARE ON THEIR WAY TO SEE PT BEFORE THE TERMINAL WEAN. I CALLED CAFETERIA TO REQUEST FOR A COMFORT CART.
--- NOTE | 2020-02-09 11:30 | NUR ---
PT'S FAMILY IN TO SEE PT. EDUCATED THEM ON POC, WHAT TO EXPECT ON THE PROCESS OF TERMINAL WEAN, COMFORT CARE. ALL QUESTION ANSWER. ISOLATION PRECAUTIONS. COVID 19 MEASURES [facility].
--- NOTE | 2020-02-09 12:05 | NUR ---
PREMEDICATED WITH MS AND ATIVAN PRIOR TO TERMINAL WEAN.
[2020-02-09] MEDS: LORazepam 2MG/ML-1ML VIAL IV PRN ×2 (12:06→14:35)
[2020-02-09] MEDS: MORPHINE SULF INJ 2 MG/ML SYRINGE 1ML IV PRN ×2 (12:06→14:34)
--- NOTE | 2020-02-09 12:11 | NUR ---
NOTIFIED RT JAIMEE OF TERMINAL WEAN. PT'S FAMILY WANTS IT DONE IN 15 MINUTES PLANNED.
--- NOTE | 2020-02-09 12:50 | NUR ---
TERMINAL EXTUBATED PT, RN TAMMY AT BEDSIDE. PLACED PT ON 4L NC WITH HUMIDIFIER. HR 81, SPO2 80%, BP 95/80, RR 12. SX LARGE AMOUNTS OF COPIOUS SECRETIONS. FAMILY MEMBERS OUTSIDE PT'S ROOM MADE AWARE. WILL CONTINUE TO MONITOR PT.
--- NOTE | 2020-02-09 12:50 | NUR ---
TERMINALLY EXTUBATED BY RT JAIMEE. PT STARTED HAVING LOW SPO2 DOWN TO THE 80'S LUNGS SOUNDS WITH COARSE CRACKLES THROUGHOUT. PT'S FAMILY ALLOWED TO GO BACK IN PT'S ROOM TO SPEND MORE TIME WITH PT.
--- NOTE | 2020-02-09 16:05 | NUR ---
DR. RAHMAN HAS SIGNED OFF PT'S CARE. HE SAID IT IS OK. TO CONTINUE KEPPRA PART OF PT'S COMFORT ARE MEASURES FOR SEIZURE CONTROL.
[2020-02-09] MEDS: DexMEDEtomidine 400 MCG in D5W 5% 96 ML IV SCH (17:24)
--- NOTE | 2020-02-09 18:30 | NUR ---
PT'S SISTER CALLED TO GET AN UPDATE ON PT'S CONDITION. UPDATED ON PT'S CONDITION. PT'S SISTER WANTS TO BE NOTIFIED WHEN PT GETS MOVED TO A DIFFERENT ROOM OR WHEN PT EXPIRES.
--- NOTE | 2020-02-09 20:42 | NUR ---
GAVE REPORT TO QUINTON PT WILL BE TRANSFERRED TO ROOM 208 [facility]AL [facility]-S[facility]
--- NOTE | 2020-02-09 21:10 | NUR ---
TRANSFERRED PT TO MED-SURG ROOM 208 TRANSFERRED PT BY BED ON 4L NC THERE WERE NO PT'S BELONGINGS IN THE ROOM. ERICK ALCANTARA AT THE BEDSIDE
--- NOTE | 2020-02-09 21:40 | NUR ---
NOTIFIED FAMILY OF PT'S TRANSFER TO MED-SURG SPOKE TO KOMAL (SISTER) REGARDING PATIENT TRANSFER TO MED-SURG PROVIDED HER NEW RN PROVIDER AND EXTENSION FOR CENTRAL UNIT KOMAL STATED SHE WILL CALL IN A MORNING TO GET AN UPDATE ON THE PT, SHE UNDERSTANDS THAT HE MIGHT NOT MAKE IT UNTIL MORNING.
[2020-02-10 05:00] VITALS: BP 156/95
[2020-02-10] MEDS: LORazepam 2MG/ML-1ML VIAL IV PRN ×3 (05:02→21:02)
[2020-02-10] MEDS: MORPHINE SULF INJ 2 MG/ML SYRINGE 1ML IV PRN ×4 (05:03→21:02)
--- NOTE | 2020-02-10 05:03 | NUR ---
Patients desaturate in the 70s, a little bit shaking. Morphine IV and Ativan IV given for comfort. Will continue care.
[2020-02-10 05:29] LABS: BUN/Creatinine Ratio 52.1; Calcium 8.6 mg/dL (8.5-10.1); Potassium 3.3 mmol/L (3.5-5.1)
--- NOTE | 2020-02-10 06:13 | NUR ---
Patient's afebrile HR 52, RR 22, O2 sat 93%, BP 150/82 still unresponsive but appears to be comfortable.
[2020-02-10] MEDS: SODIUM CHLOR 0.9% PF (SALINE LOCK) 10ML VIAL/SYR IV SCH ×3 (06:15→22:29)
--- NOTE | 2020-02-10 07:00 | NUR ---
Opening Shift Note Received report on the patient. Patient is comatose. Patient shows no signs of distress at this time. Bed in lowest position, side rails up x2, and the call light is within reach.
[2020-02-10 08:04] VITALS: BP 148/70
--- NOTE | 2020-02-10 09:30 | NUR ---
RN at bedside suctioning oral cavity. Large amount of brown thin secretions. PT on 4 l/m NC. PT on comfort measure.
--- NOTE | 2020-02-10 12:40 | NUR ---
Dr. Quick at bedside
[2020-02-10 13:00] VITALS: BP 148/82
--- NOTE | 2020-02-10 13:01 | NUR ---
Patient's respirations are 34. Comfort measures given.
--- NOTE | 2020-02-10 15:06 | NUR ---
Nutrition Followup Notes Pt wt is 60.0 kg Pt is extubated, non-responsive, DNR, s/p cardiac arrest on comfort care. Pt is currently NPO with no diet order. Pt with no noted distress per RN doc. Will continue to closely monitor pertinent labs, PO intake, skin status and weight trends. Will f/u in 2-3 days Est Energy needs: 8775-0033 kcals (30-35 kcal/kgBW) d/t pt with Stg 3 CKD Est Protein needs: 44-65 gms/day (0.6-0.75 gm/kgBW) d/t pt with Stg 3 CKD Will continue to monitor and reassess prn. LABS: NA 148 H, POT 3.3 L, CL 109 L, BUN 75 H, CR 1.46 H, GFR 51 L, GLUC 140 H, BILI 2.5 H, AST/ALT/ALK PHOS 274/1734/126 H GI: No BM noted per RN doc BS: 6 high risk. Refer to wound assessment report for full details. PES: 1) Increased nutrient needs r/t pt with no PO intake aeb pt is sedated, intubated, NPO 2) Altered nutrition related lab values r/t current/chronic medical condition aeb elev RFTs, low GFR, hyperglycemia, hypocalcemia, severe hypoalbuminemia, elev LFTs, elev Bili Comments Will continue to monitor PO status, skin status, pertinent labs and weight trends. Will f/u in 3-5 days. 1) Continue to closely monitor pt NPO status 2) If pt remains NPO for the next 48 hours, consider EN nutrition support Jevity 1.2 @ 80ml/hr goal rate 3) Gradually advance pt to oral Renal Specific 50gPro,2gNa,K2,low phos diet when medically feasible and as tolerated 4) Continue current plan of care
[2020-02-10 17:00] VITALS: BP 160/79
--- NOTE | 2020-02-10 19:30 | NUR ---
Opening Shift Note Received report from Jennifer SUAREZ. Assumed care of patient, resting with eyes closed. No S/S of distress/SOB or pain. Will continue to monitor for changes Q1hr and PRN.
--- NOTE | 2020-02-10 19:51 | NUR ---
Closing Shift Report gave report to RN Stephany. Patient shows no signs of distress at this time.
--- NOTE | 2020-02-10 20:40 | NUR ---
Received call from sister Valeria, updated on patient's condition.
--- NOTE | 2020-02-10 21:02 | NUR ---
Patient's respiration is 30, Morphine IV given for comfort.
[2020-02-10 22:00] VITALS: BP 168/80
[2020-02-11] MEDS: MORPHINE SULF INJ 2 MG/ML SYRINGE 1ML IV PRN ×3 (01:34→13:51)
[2020-02-11] MEDS: LORazepam 2MG/ML-1ML VIAL IV PRN ×3 (01:34→13:51)
[2020-02-11] MEDS: SODIUM CHLOR 0.9% PF (SALINE LOCK) 10ML VIAL/SYR IV SCH ×3 (06:00→21:59)
--- NOTE | 2020-02-11 06:55 | NUR ---
Patient's vitals HR 52 RR 24 90% sat BP 136/67, positioned for comfort.
[2020-02-11 09:00] VITALS: BP 128/72
[2020-02-11 13:00] VITALS: BP 122/77
[2020-02-11 17:00] VITALS: BP 99/70
--- NOTE | 2020-02-11 22:50 | NUR ---
Spoke to patient's sister Valeria, updated on the status of the patient and POC, she verbalized understanding.
[2020-02-11 23:37] VITALS: BP 114/78
[2020-02-12] MEDS: MORPHINE SULF INJ 2 MG/ML SYRINGE 1ML IV PRN ×2 (03:01→09:11)
[2020-02-12] MEDS: LORazepam 2MG/ML-1ML VIAL IV PRN ×2 (03:02→09:11)
[2020-02-12 05:23] VITALS: BP 130/86
[2020-02-12] MEDS: SODIUM CHLOR 0.9% PF (SALINE LOCK) 10ML VIAL/SYR IV SCH ×2 (06:15→14:23)
--- NOTE | 2020-02-12 07:10 | NUR ---
Patient still alive but unresponsive, vitals still in the normal range. Endorsed care to Cayla SUAREZ.
[2020-02-12 09:00] VITALS: BP 99/73
[2020-02-12 13:00] VITALS: BP 100/84
--- NOTE | 2020-02-12 13:46 | NUR ---
Nutrition Followup Note Pt is comfort measures only
--- NOTE | 2020-02-12 15:13 | NUR ---
Spoke to [facility]. Pickup is between 6-7
[2020-02-12 15:57] VITALS: BP 100/84
--- NOTE | 2020-02-12 16:00 | NUR ---
RE-ASSESSMENT NUTRITIONAL SERVICES COOK RECEIVED SS CONSULT FOR HOSPICE. NUTRITIONAL SERVICES COOK SPOKE WITH PT'S SISTER KOMAL WHO AGREES TO HOSPICE, NO PREFERENCE FOR HOSPICE COMPANY. FAMILY PROVIDED WITH CHOICE LETTER. NUTRITIONAL SERVICES COOK FAXED PACKET AND SPOKE WITH DORIE AT [facility] WHO COORDINATED WITH PT'S SISTER FOR PLACEMENT. PLACEMENT ARRANGED, [facility] [place]. NO OTHER SS NEEDS. SS TO REMAIN AVAILABLE NEEDED.
[2020-02-12 17:00] VITALS: BP 112/67
--- NOTE | 2020-02-12 18:54 | NUR ---
Patient picked up by [facility] and transported to hospice. Discharge instructions given as ordered. Encourage to follow up with PMD as instructed. All questions and concerns addressed. Patient verbalized understanding. Medication reconciliation form completed and copy given to patient. IV removed with catheter intact, pressure dressing applied, ramos catheter kept. Telemetry unit returned to ICU. Patient taken to vehicle via wheelchair with all personal belongings, accompanied by staff. No distress noted at time of departure.
== END 2020-02-12 18:47 | disposition hospice, home (50) | DRG 870 ==
LOC: EDBD 16:09 → ER 16:09 → TELE 16:10 → ICU WEST 02-06 12:00 → TELE-CENTR 02-09 21:10 → CENTRAL 02-09 21:28
PROVIDERS: ADMIT Internal Medicine; ATTEND Internal Medicine Geriatric Medicine
PROC: 5A09357 Assistance with Respiratory Ventilation, Less than 24 Consecutive Hours, Continuous Positive Airway Pressure (ICD-10-PCS; 2020-02-04)
PROC: 5A12012 Performance of Cardiac Output, Single, Manual (ICD-10-PCS; 2020-02-04)
PROC: 5A1955Z Respiratory Ventilation, Greater than 96 Consecutive Hours (ICD-10-PCS; principal; 2020-02-05)
PROC: 0BH17EZ Insertion of Endotracheal Airway into Trachea, Via Natural or Artificial Opening (ICD-10-PCS; 2020-02-05)
PROC: 02HV33Z Insertion of Infusion Device into Superior Vena Cava, Percutaneous Approach (ICD-10-PCS; 2020-02-05)
DX: A41.9 Sepsis, unspecified organism (principal); J96.00 Acute respiratory failure, unspecified whether with hypoxia or hypercapnia; I46.9 Cardiac arrest, cause unspecified; I21.4 Non-ST elevation (NSTEMI) myocardial infarction; N17.0 Acute kidney failure with tubular necrosis; K72.00 Acute and subacute hepatic failure without coma; J18.9 Pneumonia, unspecified organism; E44.1 Mild protein-calorie malnutrition; M33.20 Polymyositis, organ involvement unspecified; E87.2 Acidosis; I42.9 Cardiomyopathy, unspecified; I50.20 Unspecified systolic (congestive) heart failure; G93.1 Anoxic brain damage, not elsewhere classified; I13.0 Hypertensive heart and chronic kidney disease with heart failure and stage 1 through stage 4 chronic kidney disease, or unspecified chronic kidney disease; J44.0 Chronic obstructive pulmonary disease with (acute) lower respiratory infection; J98.11 Atelectasis; F10.239 Alcohol dependence with withdrawal, unspecified; I48.92 Unspecified atrial flutter; E87.5 Hyperkalemia; E83.41 Hypermagnesemia; E11.21 Type 2 diabetes mellitus with diabetic nephropathy; Z51.5 Encounter for palliative care; Z66 Do not resuscitate; Z20.828 Contact with and (suspected) exposure to other viral communicable diseases; R91.8 Other nonspecific abnormal finding of lung field; E03.9 Hypothyroidism, unspecified; I25.10 Atherosclerotic heart disease of native coronary artery without angina pectoris; N18.9 Chronic kidney disease, unspecified; E11.22 Type 2 diabetes mellitus with diabetic chronic kidney disease; F17.200 Nicotine dependence, unspecified, uncomplicated; I48.91 Unspecified atrial fibrillation; Z79.01 Long term (current) use of anticoagulants; Z79.02 Long term (current) use of antithrombotics/antiplatelets; Z79.82 Long term (current) use of aspirin; Z68.25 Body mass index [BMI] 25.0-25.9, adult
CPT/HCPCS: 31500; 36415; 36600; 51702; 70450; 71045; 71250; 76705; 76775; 80048; 80053; 80061; 80202; 80307; 81001; 82550; 82570; 82805; 83735; 83880; 84156; 84300; 84443; 84484; 85007; 85025; 85027; 85379; 85610; 85730; 86038; 86160; 87070; 87077; 87081; 87086; 87186; 87205; 87804; 87880; 92950; 93005; 93306; 93970; 94002; 94003; 94660; 95819; 96365; 96368; 96375; 99291; A4618; G0378; J0610; J0696; J1815; J1956; J2250; J2405; J3490; J7060